=== PATIENT | male | born 1945 | race Caucasian/White ===

== ENCOUNTER 2023-10-16 10:56 | Emergency (ER) | payer MEDICARE ==
[~2023-10-16] VITALS: Ht 175.3 cm; Wt 75.0 kg
[2023-10-16 10:58] VITALS: BP 230/123; PULSE 60; TEMP 97.8; O2SAT 98
[2023-10-16] MEDS ORDERED: diazepam inj 5 MG/ML inj. IM ONE (11:55)
[2023-10-16] MEDS ORDERED: ketorolac trometh inj. 60 MG/2 ML VIAL IM ONE (11:55)
[2023-10-16] MEDS ORDERED: CYCL-1 PO (11:57)
[2023-10-16] MEDS ORDERED: NAPR-56 PO (11:57)
[2023-10-16 12:06] VITALS: RESP 17
== END 2023-10-16 12:13 | disposition home or self-care (01) ==
LOC: ER 10:56
DX: S39.012A Strain of muscle, fascia and tendon of lower back, initial encounter (principal); S20.211A Contusion of right front wall of thorax, initial encounter; Z79.1 Long term (current) use of non-steroidal anti-inflammatories (NSAID); W18.39XA Other fall on same level, initial encounter; Y93.89 Activity, other specified; Y92.89 Other specified places as the place of occurrence of the external cause; Y99.8 Other external cause status
CPT/HCPCS: 71111; 72074; 72100; 96372; 99284; J1885; J3360

== ENCOUNTER 2024-08-03 19:09 | Emergency (ER) | payer MEDICARE ==
[~2024-08-03] VITALS: Ht 170.2 cm; Wt 79.5 kg
[~2024-08-03 19:09] MED LIST: CYCL-1 PO
[2024-08-03 19:14] VITALS: TEMP 98.7
[2024-08-03 19:30] LABS: BASOPHILS # (AUTO) 0.1 X10'3 (0-0.2); BASOPHILS % (AUTO) 1.1 % (0-1); EOSINOPHILS # (AUTO) 0.3 X10'3 (0-0.9); EOSINOPHILS % (AUTO) 2.1 % (0-6); HEMATOCRIT 43.1 % (42.0-52.0); HEMOGLOBIN 15.2 g/dl (14.0-17.9); LYMPHOCYTES # (AUTO) 5.6 X10'3 (1.1-4.8); LYMPHOCYTES % (AUTO) 45.9 % (21-51); MEAN CORPUSCULAR HEMOGLOBIN 32.3 PG (27.0-31.0); MEAN CORPUSCULAR HGB CONC 35.3 g/dL (33.0-36.5); MEAN CORPUSCULAR VOLUME 91.3 FL (78-98); MEAN PLATELET VOLUME 8.5 FL (7.4-10.4); MONOCYTES # (AUTO) 0.6 X10'3 (0-0.9); MONOCYTES % (AUTO) 4.7 % (2-12); NEUTROPHILS # (AUTO) 5.6 X10'3 (1.8-7.7); NEUTROPHILS % (AUTO) 46.2 % (42-75); PLATELET COUNT 210 X10'3 (140-440); RED BLOOD COUNT 4.71 X10'6 (4.70-6.10); RED CELL DISTRIBUTION WIDTH 13.6 % (11.5-14.5); WHITE BLOOD COUNT 12.1 X10'3 (4.5-11.0)
[2024-08-03 19:49] LABS: ALANINE AMINOTRANSFERASE 26 U/L (12-78); ALBUMIN 3.7 G/DL (3.4-5.0); ALBUMIN/GLOBULIN RATIO 1.1 (1.1-1.5); ALKALINE PHOSPHATASE 81 IU/L (46-116); ANION GAP 8 (8-16); ASPARTATE AMINO TRANSFERASE 14 U/L (10-37); BILIRUBIN,TOTAL 0.4 MG/DL (0.1-1.0); BLOOD UREA NITROGEN 16 MG/DL (7-18); BUN/CREATININE RATIO 15.2 (10.0-20.0); CALCIUM 8.7 MG/DL (8.5-10.1); CHLORIDE 106 MMOL/L (99-107); CREATININE 1.05 MG/DL (0.60-1.10); GLUCOSE 142 MG/DL (70-104); POTASSIUM 4.3 MMOL/L (3.5-5.1); SODIUM 140 MMOL/L (135-145); TOTAL CARBON DIOXIDE 25.9 MMOL/L (24-32); TOTAL PROTEIN 7.2 G/DL (6.4-8.2); eCRCL 54 ML/MIN; eGFR 68 ML/MIN
[2024-08-03] MEDS: aspirin 81mg tab.chew PO ONE (19:56)
[2024-08-03 19:57] LABS: PRO BRAIN NATRIURETIC PEPTIDE 82 PG/ML (0-450)
[2024-08-03] MEDS: mag hydrox/Alum hydrox/simeth 30ml oral suspension PO ONE (19:58)
[2024-08-03] MEDS: LIDOcaine 2% Viscous 15ml cup MM PRN (19:58)
[2024-08-03] MEDS: enalaprilat dihydrate 2.5mg/2ml vial IV ONE (20:33)
[2024-08-03] MEDS: hydrALAZINE 20mg/ml inj. IV ONE (21:20)
[2024-08-03 21:31] LABS: D-DIMER 0.27 MG/L FEU (0-0.50)
[2024-08-03 23:03] VITALS: BP 161/88; PULSE 61; RESP 15; O2SAT 97
== END 2024-08-03 23:11 | disposition home or self-care (01) ==
LOC: ER 19:10
DX: R07.89 Other chest pain (principal); I10 Essential (primary) hypertension; R07.81 Pleurodynia; M54.6 Pain in thoracic spine; Z79.899 Other long term (current) drug therapy
CPT/HCPCS: 36415; 71045; 80053; 83880; 84484; 85025; 85379; 93005; 96374; 96375; 99285; J0360; J3490